=== PATIENT | female | born 2000 | race Caucasian/White ===

== ENCOUNTER 2025-05-08 18:55 | Emergency (ER) | payer MEDICAID, SELFPAY ==
[2025-05-08 19:39] VITALS: BP 105/59; PULSE 93; RESP 18; TEMP 36.9; O2SAT 100
--- NOTE | 2025-05-08 19:56 | XR_ITS ---
Examination: Complete OB ultrasound, less than 14 weeks, transabdominal Date and time of exam: May 08, 2025, 0804 hrs. Indications: Pelvic pain and vaginal bleeding beginning one week ago Technique: Obstetrical ultrasound images less than 14 weeks performed via transabdominal imaging Findings: Uterus 7.8 cm no uterine mass or intrauterine gestation Endometrial stripe 14 mm Right ovary 3.1 cm arterial flow Left ovary 2.8 cm arterial flow Impression: Negative examination
--- NOTE | 2025-05-08 19:56 | PD.EDRME ---
Rapid Medical Screening Exam RME Arrival date/time: 05/08/25 18:55 This is a case of 24-year-old female who came into the emergency room due to vaginal bleeding patient is unknown LMP 3 para 0 history of 1 history of 1 ectopic patient also have pelvic cramping persistence of the symptoms this patient decided to start consulted in the emergency room Chief Complaint: OB/Uterine Contractions Vital signs: Vital Signs Temperature 98.5 F 05/08/25 19:39 Pulse Rate 93 05/08/25 19:39 Respiratory Rate 18 05/08/25 19:39 Blood Pressure 105/59 L 05/08/25 19:39 Pulse Oximetry (%) 100 05/08/25 19:39 Oxygen Delivery Method Room Air 05/08/25 19:39
--- NOTE | 2025-05-08 20:18 | XR_ITS ---
Examination: Transvaginal ultrasound of the pelvis, complete Technique: Transvaginal sonographic images pelvis performed using isabel scale imaging Exam date and time: May 08, 2025, 2016 hrs. Indications: Vaginal bleeding and pelvic pain beginning one week ago Findings: Uterus 8.6 cm Intrauterine gestational sac 0.3 cm corresponds to 5 weeks 0 day gestational age No pole, no cardiac activity Right ovary 3.3 cm arterial flow Left ovary 2.8 cm arterial flow Impression: Suspicious for early intrauterine gestational sac corresponding to 5 weeks 0 days gestational age Recommend short-term follow-up to confirm viability.
[2025-05-08 20:19] LABS: Basophils # (Auto) 0.0 Thou/mm3 (0.0-0.2); Basophils % (Auto) 1 % (0-2.5); Eosinophils # (Auto) 0.1 Thou/mm3 (0.0-0.5); Eosinophils % (Auto) 2 % (0-10); Hematocrit 38.1 % (36.0-46.0); Hemoglobin 12.9 g/dL (12.0-16.0); Immature Granulocytes Auto 0.01 Thou/mm3 (0.00-0.00); Lymphocytes # (Auto) 2.2 Thou/mm3 (1.0-4.8); Lymphocytes % (Auto) 35 % (10-50); Mean Corpuscular HGB Conc 33.9 g/dl (31.0-37.0); Mean Corpuscular Hemoglobin 30.9 pg (25.0-35.0); Mean Corpuscular Volume 91 fL (80-100); Monocytes # (Auto) 0.6 Thou/mm3 (0.0-0.8); Monocytes % (Auto) 9 % (0-12); Neutrophils # (Auto) 3.4 Thou/mm3 (1.8-7.7); Neutrophils % (Auto) 54 % (37-80); Nucleated Red Blood Cell # 0.00 Thou/mm3 (0.00-0.00); Nucleated Red Blood Cell % 0 /100 WBC (0); Platelet Count 259 Thou/mm3 (140-440); RDW Standard Deviation 39.3 fL (36.4-46.3); Red Blood Count 4.18 Miln/mm3 (4.00-5.20); White Blood Count 6.3 Thou/mm3 (3.6-11.0)
[2025-05-08 20:50] LABS: Alanine Aminotransferase 9 U/L (10-49); Albumin, Serum 4.4 gm/dL (3.5-5.0); Albumin/Globulin Ratio 2.2 (1.2-2.2); Alkaline Phosphatase 51 U/L (46-116); Anion Gap 8 (7-16); Aspartate Amino Transferase 17 U/L (0-34); BUN/Creatinine Ratio 6 Ratio (12-20); Beta HCG,Quantitative 870 mIU/mL (<5.0); Bilirubin,Total 0.8 mg/dL (0.3-1.2); Blood Urea Nitrogen 5 mg/dL (9-23); Calcium 9.8 mg/dL (8.3-10.6); Calcium (Corrected) 9.8 mg/dL (8.5-10.1); Carbon Dioxide 25.1 mMol/L (20.0-31.0); Chloride 108 mMol/L (98-107); Creatinine (Component) 0.8 mg/dL (0.6-1.3); Globulin 2.0 gm/dL (2.3-3.5); Glucose 97 mg/dL (74-106); Osmolality,Calculated 278 (275-295); Potassium 4.0 mMol/L (3.4-5.1); Sodium 141 mMol/L (136-145); Total Protein 6.4 gm/dL (5.7-8.2); eGFR > 60 See Note
[2025-05-08 21:05] LABS: Collection Type, Urine Voided
[2025-05-08 21:10] LABS: Bilirubin,Urine Negative (Negative); Blood,Urine Negative (Negative); Clarity,Urine Clear (Clear/Hazy); Color,Urine Lt-Yellow (Lt Yel-Yel); Glucose, Urine Negative (Negative); Hyaline Casts,Urine < 1 /hpf (0-1); Ketones,Urine Negative (Negative); Leukocyte Esterase,Urine Negative (Negative); Nitrite,Urine Negative (Negative); PH,Urine 6.0 (5.0-7.0); Protein,Urine Negative (Neg - Trace); RBC,Urine 1 /hpf (0-3); Specific Gravity,Urine 1.024 (1.001-1.035); Squamous Epithelial Cell,Urine 3 /hpf (0-5); Urobilinogen,Urine Negative mg/dL (0.0-1.0); WBC,Urine 1 /hpf (0-5)
--- NOTE | 2025-05-08 21:53 | EDNOTE_ITS ---
ED General RME/HPI General Chief complaint: OB/Uterine Contractions Stated complaint: CRAMPING, SPOTTING, PREG, HX ECTOPIC Time Seen by Provider: 05/08/25 19:58 Arrival date/time: 05/08/25 18:55 CC: Low center abdominal pain, intermittent spotting HPI ongoing for the past 2 days took a test which was positive several weeks ago last menstrual cycle ended April 07. Patient is a . Denies fever chills chest pain shortness of breath or difficulty breathing RME / HPI RME / HPI narrative: 05/08/25 18:55 This is a case of 24-year-old female who came into the emergency room due to vaginal bleeding patient is unknown LMP 3 para 0 history of 1 history of 1 ectopic patient also have pelvic cramping persistence of the symptoms this patient decided to start consulted in the [facility] room Related Data Allergies Allergy/AdvReac Type Severity Reaction Status Date / Time No Known Allergies Allergy Verified 05/08/25 18:57 Review of Systems Review of Systems Narrative Review of Systems: GEN: No fever, no chills, no weight loss EYES: No discharge, no visual changes, no pain HEENT: No ear pain, no congestion, no sore throat PULM: No shortness of breath, no cough, no congestion CV: No chest pain, no dyspnea on exertion, no palpitations GI: No nausea, no vomiting, no diarrhea, no pain, no constipation : No frequency, no urgency, no dysuria MUSC/SKEL: No joint pain, no back pain SKIN: No rash PSYCH: No hallucinations, no depression HEME/LYMPH: No easy bleeding or bruising tendencies NEURO: No weakness, no headache ED Exam Narrative Physical exam: [General: Not in any acute distress Head normocephalic HEENT: Within acceptable limits Neck is supple nontender Chest equal chest rise nontender to palpation Respiratory: Clear to auscultation no wheezes crackles or rubs CV: Rate rhythm is regular no murmurs rubs or clicks Abdomen is soft nontender no masses positive bowel sounds all 4 quadrants Back: No CVA tenderness no spinous process tenderness from cervical spine thoracic and lumbar spine Skin: Intact no petechiae rash induration ulceration or crepitus Extremities: Moving all extremity against resistance cap refill less than 2 seconds neurosensory intact Neuro: Awake alert oriented x3 Glascow coma 15 no focal deficits] Course Quality Measures none Orders Category Date Time Status US OB <= 14 weeks fetus Stat Exams 05/08/25 19:56 Completed US transvaginal Stat Exams 05/08/25 20:18 Completed ABO/RH Type Stat Lab 05/08/25 20:00 Completed Beta HCG,Quantitative Stat Lab 05/08/25 20:00 Completed CBC Stat Lab 05/08/25 20:00 Completed CMP [Comprehensive Metabolic Panel] Stat Lab 05/08/25 20:00 Completed Urinalysis Stat Lab 05/08/25 20:46 Completed Vital Signs Vital signs: Vital Signs Temperature 98.5 F 05/08/25 19:39 Pulse Rate 93 05/08/25 19:39 Respiratory Rate 18 05/08/25 19:39 Blood Pressure 105/59 L 05/08/25 19:39 Pulse Oximetry (%) 100 05/08/25 19:39 Oxygen Delivery Method Room Air 05/08/25 19:39 Discharge Plan Plan Patient Disposition: HOME (Self Care) Patient condition on transfer: Stable Prescriptions/Referrals Referrals: Etienne Quiles MD [Primary Care Provider, Family Practice] - In 1 week Problem List Clinical Impression: Threatened miscarriage Patient/Caregiver Discharge Instructions Education Materials: ED Possible Miscarriage ... Additional Instructions: Follow-up with your OB, family practice, or the emergency room for ultrasound and recheck of your quantitative hCG. If there is high fever significant abdominal pain heavy cramping or heavy bleeding please return the emergency room for reevaluation. Print Language: Persian Stand Alone Forms: Libby Award Info., Work/School Release, Patient Portal Info Letter POOJA/JB Supervising Physician POOJA/JB Supervising Physician: Kaleb Treviño ENP [facility] Clinical Information Provided by: patient Medical Records reviewed [facility] Meds/Rx considered, not ordered None Labs/Rad/Tests considered, not ordered None Chronic Illness/Social Conditions which may negatively complicate care or outcome(s)-explain: None or not applicable Labs Labs: interpreted by mi Lab(s) Interpretation(s): CBC shows no acute leukocytosis anemia thrombocytopenia CMP shows no significant electrolyte imbalances renal impairment transaminitis or T. bili elevation. Quantitative hCG at 870. Urine is negative for urinary tract infection. ABO Rh O+. Imaging Imaging interpretation: interpreted by me Imaging Interpretation(s): Transvaginal suggestive of a 5-week gestational sac ultrasound is a negative exam. Diagnosis Differential Diagnosis ED Complaint MDM: Tubal IUP, miscarriage
== END 2025-05-08 22:07 | disposition home or self-care (01) ==
PROVIDERS: Nurse Practitioner Family; Emergency Provider Emergency Medicine; PCP Family Medicine
DX: O20.0 Threatened abortion (principal); R10.2 Pelvic and perineal pain
CPT/HCPCS: 36415; 76801; 76830; 80053; 81001; 84702; 85025; 86900; 86901; 99283